=== PATIENT | female | born 1985 | race Caucasian/White ===

== ENCOUNTER 2016-08-27 13:00 | Emergency (ER) | payer OTHER | END 2016-08-27 16:05 | disposition home or self-care (01) | LOC: FER 13:00 | DX: R51 Headache (principal); I10 Essential (primary) hypertension; F41.9 Anxiety disorder, unspecified; Z88.1 Allergy status to other antibiotic agents; Z79.899 Other long term (current) drug therapy; Z87.442 Personal history of urinary calculi | CPT/HCPCS: J1885; J2765 ==

== ENCOUNTER 2016-09-09 15:19 | Emergency (ER) | payer OTHER | END 2016-09-09 16:51 | disposition home or self-care (01) | LOC: FER 15:19 | DX: S16.1XXA Strain of muscle, fascia and tendon at neck level, initial encounter (principal); S46.911A Strain of unspecified muscle, fascia and tendon at shoulder and upper arm level, right arm, initial encounter; I11.9 Hypertensive heart disease without heart failure; J45.909 Unspecified asthma, uncomplicated; Z87.442 Personal history of urinary calculi; Z88.1 Allergy status to other antibiotic agents; V43.62XA Car passenger injured in collision with other type car in traffic accident, initial encounter; Y92.410 Unspecified street and highway as the place of occurrence of the external cause | CPT/HCPCS: 72050; 73030; 99284 ==

== ENCOUNTER 2016-09-26 12:03 | Emergency (ER) | payer OTHER | END 2016-09-26 16:01 | disposition home or self-care (01) | LOC: FER 12:03 | DX: F07.81 Postconcussional syndrome (principal); G44.309 Post-traumatic headache, unspecified, not intractable; H53.8 Other visual disturbances; I10 Essential (primary) hypertension; Z88.1 Allergy status to other antibiotic agents; Z79.899 Other long term (current) drug therapy | CPT/HCPCS: 70450 ==

== ENCOUNTER 2016-11-26 15:10 | Emergency (ER) | payer OTHER | END 2016-11-26 17:23 | disposition home or self-care (01) | LOC: FER 15:10 | DX: S93.402A Sprain of unspecified ligament of left ankle, initial encounter (principal); Z88.0 Allergy status to penicillin; X50.1XXA Overexertion from prolonged static or awkward postures, initial encounter; Y93.01 Activity, walking, marching and hiking; Y92.009 Unspecified place in unspecified non-institutional (private) residence as the place of occurrence of the external cause | CPT/HCPCS: 73610; 99283 ==

== ENCOUNTER 2016-12-13 15:39 | Emergency (ER) | payer OTHER | END 2016-12-13 18:13 | disposition home or self-care (01) | LOC: FER 15:39 | DX: J20.9 Acute bronchitis, unspecified (principal); J02.9 Acute pharyngitis, unspecified; I10 Essential (primary) hypertension; G89.29 Other chronic pain; Z88.1 Allergy status to other antibiotic agents; Z79.899 Other long term (current) drug therapy | CPT/HCPCS: 71020; 87450; 94640; 94664 ==

== ENCOUNTER 2016-12-18 02:54 | Emergency (ER) | payer OTHER ==
[2016-12-18 03:45] LABS: BILIRUBIN NEGATIVE (NEGATIVE); BLOOD TRACE-INTACT Ery/uL (NEGATIVE); CLARITY CLEAR (CLEAR); COLOR YELLOW (YELLOW); GLUCOSE (U) NORMAL (NORMAL); KETONE (U) NEGATIVE (NEGATIVE); LEUKOCYTES 1+ Leu/uL (NEGATIVE); NITRITE NEGATIVE (NEGATIVE); PROTEIN TRACE (LOW) mg/dL (NEGATIVE); SPECIFIC GRAVITY >=1.030 (1.001-1.030)
[2016-12-18 03:49] LABS: BACTERIA 1+; MUCOUS MODERATE
== END 2016-12-18 04:40 | disposition home or self-care (01) ==
LOC: FER 02:54
PROVIDERS: Emergency Medicine Emergency Medical Services
DX: R05 Cough (principal); J45.909 Unspecified asthma, uncomplicated; I10 Essential (primary) hypertension; Z87.442 Personal history of urinary calculi; R00.0 Tachycardia, unspecified
CPT/HCPCS: 71020; 81001; 87081; 87088; 94640

== ENCOUNTER 2020-09-09 19:27 | Emergency (ER) | payer OTHER ==
[~2020-09-09 19:27] MED LIST: BENTYL10 MG PO; K-DUR20 MEQ PO; LOPRESSOR25 MG PO; NAPROSYN375 MG PO; NORCO 5-325 TA1 EACH PO; ZOFRAN8 MG PO
[2020-09-09 20:54] LABS: BASOPHIL 0.9 % (0-2); EOSINOPHIL 1.1 % (0-5); HCT 43.8 % (37.0-47.0); HGB 13.9 g/dl (12.5-16.0); MCH 27.1 pg (25.0-31.0); MCHC 31.7 g/dL (32.0-36.0); MCV 85.4 fL (78.0-100.0); MONOCYTE 5.8 % (0-12); MPV 11.9 fL (6.0-9.5); NRBC 0; PLT 115 K/uL (150-400); RBC 5.13 M/uL (4.20-5.40); RDW 13.6 % (11.5-14.0)
[2020-09-09 20:57] LABS: WBC 5.7 K/uL (4.0-10.5)
[2020-09-09 21:09] LABS: BUN/CREAT RATIO (CALC) 7.8 RATIO; CREATININE 0.9 mg/dL (0.51-0.95); POTASSIUM 3.7 mmol/L (3.5-5.1)
[2020-09-09 21:42] LABS: CORONAVIRUS 2019 SARS-COV-2 NEGATIVE (NEGATIVE)
[2020-09-09 21:43] LABS: INFLUENZA A NAA NEGATIVE (NEGATIVE)
== END 2020-09-09 23:45 | disposition home or self-care (01) ==
LOC: FER 19:27
PROVIDERS: Nurse Practitioner Family
DX: J06.9 Acute upper respiratory infection, unspecified (principal); R42 Dizziness and giddiness; I10 Essential (primary) hypertension; Z88.0 Allergy status to penicillin; Z20.822 Contact with and (suspected) exposure to COVID-19
CPT/HCPCS: 36415; 71045; 71275; 80048; 85025; 85379; J7030; Q9967; U0002

== ENCOUNTER 2020-11-06 11:58 | Emergency (ER) | payer OTHER ==
[2020-11-06 13:48] LABS: BASOPHIL 0.1 % (0-2); EOSINOPHIL 1.8 % (0-5); HGB 13.2 g/dl (12.5-16.0); LYMPHOCYTE 25.6 % (15-48); MCH 27.6 pg (25.0-31.0); MCHC 32.2 g/dL (32.0-36.0); MCV 85.6 fL (78.0-100.0); MONOCYTE 5.2 % (0-12); MPV 12.4 fL (6.0-9.5); NEUTROPHIL 67.2 % (41-80); NRBC 0; PLT 176 K/uL (150-400); RBC 4.79 M/uL (4.20-5.40); RDW 13.7 % (11.5-14.0); WBC 7.7 K/uL (4.0-10.5)
[2020-11-06 13:59] LABS: BUN/CREAT RATIO (CALC) 9.3 RATIO; CREATININE 0.75 mg/dL (0.51-0.95); POTASSIUM 3.7 mmol/L (3.5-5.1)
[2020-11-06 15:06] LABS: CORONAVIRUS 2019 SARS-COV-2 NEGATIVE (NEGATIVE); INFLUENZA A NAA NEGATIVE (NEGATIVE)
[2020-11-06] MEDS ORDERED: PREDNISONE 20MG20 MG PO (16:08)
[2020-11-06] MEDS ORDERED: ZPAK PO ×2 (16:08→16:33)
== END 2020-11-06 16:38 | disposition home or self-care (01) ==
LOC: FER 11:58
PROVIDERS: Nurse Practitioner Family
DX: J06.9 Acute upper respiratory infection, unspecified (principal); I10 Essential (primary) hypertension; J45.909 Unspecified asthma, uncomplicated; Z88.0 Allergy status to penicillin; Z88.1 Allergy status to other antibiotic agents; Z79.899 Other long term (current) drug therapy; Z20.822 Contact with and (suspected) exposure to COVID-19
CPT/HCPCS: 36415; 71045; 71275; 80048; 85025; 85379; 87880; J7030; Q9967; U0002

== ENCOUNTER 2020-11-28 16:39 | Emergency (ER) | payer OTHER ==
[~2020-11-28 16:39] MED LIST changes: +PREDNISONE 20MG20 MG PO; +ZPAK PO
[2020-11-28 19:56] LABS: BASOPHIL 0.2 % (0-2); EOSINOPHIL 2.1 % (0-5); HCT 38.7 % (37.0-47.0); HGB 12.5 g/dl (12.5-16.0); LYMPHOCYTE 49.6 % (15-48); MCH 27.8 pg (25.0-31.0); MCHC 32.3 g/dL (32.0-36.0); MCV 86.2 fL (78.0-100.0); MONOCYTE 13.7 % (0-12); MPV 12.4 fL (6.0-9.5); NEUTROPHIL 34.2 % (41-80); NRBC 0; PLT 138 K/uL (150-400); RBC 4.49 M/uL (4.20-5.40); RDW 13.7 % (11.5-14.0); WBC 4.7 K/uL (4.0-10.5)
[2020-11-28 19:59] LABS: BILIRUBIN NEGATIVE (NEGATIVE); BLOOD 1+ Ery/uL (NEGATIVE); CLARITY CLEAR (CLEAR); COLOR YELLOW (YELLOW); GLUCOSE (U) NORMAL (NORMAL); LEUKOCYTES NEGATIVE Leu/uL (NEGATIVE); NITRITE NEGATIVE (NEGATIVE); PROTEIN NEGATIVE (NEGATIVE); UROBILINOGEN 0.2 mg/dL (0.2-1.0); pH 6.5 (5.0-9.0)
[2020-11-28 20:06] LABS: ALBUMIN 3.4 g/dL (3.4-5.0); BILIRUBIN - TOTAL 0.4 mg/dL (0.2-1.0); BUN/CREAT RATIO (CALC) 9.1 RATIO; CREATININE 0.77 mg/dL (0.51-0.95); GLOBULIN (CALCULATION) 3.7 g/dL; POTASSIUM 3.3 mmol/L (3.5-5.1); TOTAL PROTEIN 7.1 g/dL (6.4-8.2)
[2020-11-28 20:06] LABS: BACTERIA TRACE; URINARY WBC RARE
== END 2020-11-28 22:45 | disposition home or self-care (01) ==
LOC: FER 16:39
PROVIDERS: Emergency Medicine
DX: R10.84 Generalized abdominal pain (principal); R16.1 Splenomegaly, not elsewhere classified; N20.0 Calculus of kidney; Z88.1 Allergy status to other antibiotic agents; Z79.899 Other long term (current) drug therapy; Z88.0 Allergy status to penicillin
CPT/HCPCS: 36415; 80053; 81001; 83690; 85025; J2270; J2405; J7030; Q9967

== ENCOUNTER 2021-01-04 09:25 | Emergency (ER) | payer OTHER | END 2021-01-04 11:06 | disposition home or self-care (01) | LOC: FER 09:25 | DX: S40.022A Contusion of left upper arm, initial encounter (principal); M25.532 Pain in left wrist; M79.642 Pain in left hand; S50.02XA Contusion of left elbow, initial encounter; I10 Essential (primary) hypertension; J45.909 Unspecified asthma, uncomplicated; Z88.0 Allergy status to penicillin; Z88.1 Allergy status to other antibiotic agents; Z79.899 Other long term (current) drug therapy; W10.9XXA Fall (on) (from) unspecified stairs and steps, initial encounter; Y92.009 Unspecified place in unspecified non-institutional (private) residence as the place of occurrence of the external cause | CPT/HCPCS: 73080; 73110; 73610; J1885 ==

== ENCOUNTER 2021-02-07 07:58 | Emergency (ER) | payer OTHER ==
[2021-02-07 09:15] LABS: BASOPHIL 0.1 % (0-2); HCT 44.7 % (37.0-47.0); HGB 14.2 g/dl (12.5-16.0); LYMPHOCYTE 22.1 % (15-48); MCH 26.7 pg (25.0-31.0); MCHC 31.8 g/dL (32.0-36.0); MONOCYTE 7.9 % (0-12); MPV 11.7 fL (6.0-9.5); NEUTROPHIL 67.6 % (41-80); NRBC 0; PLT 204 K/uL (150-400); RBC 5.32 M/uL (4.20-5.40); WBC 8.9 K/uL (4.0-10.5)
[2021-02-07 09:17] LABS: BILIRUBIN NEGATIVE (NEGATIVE); BLOOD 3+ Ery/uL (NEGATIVE); CLARITY HAZY (CLEAR); COLOR YELLOW (YELLOW); GLUCOSE (U) NORMAL (NORMAL); LEUKOCYTES 2+ Leu/uL (NEGATIVE); NITRITE NEGATIVE (NEGATIVE); PROTEIN 1+ mg/dL (NEGATIVE); UROBILINOGEN 0.2 mg/dL (0.2-1.0); pH 6.5 (5.0-9.0)
[2021-02-07 09:24] LABS: URINARY RBC 20-50; URINARY WBC 20-50
[2021-02-07 09:25] LABS: BACTERIA TRACE
[2021-02-07 09:52] LABS: ALBUMIN 3.5 g/dL (3.4-5.0); BILIRUBIN - TOTAL 0.4 mg/dL (0.2-1.0); BUN/CREAT RATIO (CALC) 11.8 RATIO; CREATININE 0.76 mg/dL (0.51-0.95); GLOBULIN (CALCULATION) 3.9 g/dL; POTASSIUM 3.6 mmol/L (3.5-5.1); TOTAL PROTEIN 7.4 g/dL (6.4-8.2)
[2021-02-07 10:16] LABS: CORONAVIRUS 2019 SARS-COV-2 NEGATIVE (NEGATIVE); INFLUENZA A NAA NEGATIVE (NEGATIVE)
[2021-02-07] MEDS ORDERED: CIPRO500 MG PO (10:22)
[2021-02-07] MEDS ORDERED: PHENERGAN25 M1 PO (10:23)
== END 2021-02-07 10:46 | disposition home or self-care (01) ==
LOC: FER 07:58
PROVIDERS: Internal Medicine
DX: N12 Tubulo-interstitial nephritis, not specified as acute or chronic (principal); N13.6 Pyonephrosis; I10 Essential (primary) hypertension; Z98.890 Other specified postprocedural states; Z20.822 Contact with and (suspected) exposure to COVID-19; Z88.1 Allergy status to other antibiotic agents; Z91.048 Other nonmedicinal substance allergy status; Z90.49 Acquired absence of other specified parts of digestive tract
CPT/HCPCS: 36415; 80053; 81001; 85025; 87088; J2405; J7120; U0002